=== PATIENT | male | born 1985 | race Caucasian/White ===

== ENCOUNTER 2023-06-27 01:54 | Emergency (ER) | payer OTHER ==
[~2023-06-27] VITALS: Ht 175.3 cm; Wt 80.7 kg
[2023-06-27] MEDS ORDERED: Tobrex5 ML BOTHEYES (04:39)
[2023-06-27 04:50] VITALS: BP 120/81
== END 2023-06-27 04:53 | disposition home or self-care (01) ==
LOC: ER 01:54
DX: T15.91XA Foreign body on external eye, part unspecified, right eye, initial encounter (principal); W44.8XXA Other foreign body entering into or through a natural orifice, initial encounter; Y93.89 Activity, other specified; Z88.0 Allergy status to penicillin
CPT/HCPCS: 99283; A9270